=== PATIENT | female | born 1975 | race Caucasian/White ===

== ENCOUNTER 2022-07-01 13:48 | Emergency (ER) | payer BC | END 2022-07-01 14:16 | disposition home or self-care (01) | LOC: MW.ED 13:48 | DX: T22.212A Burn of second degree of left forearm, initial encounter (principal); T22.211A Burn of second degree of right forearm, initial encounter; T23.222A Burn of second degree of single left finger (nail) except thumb, initial encounter; T23.221A Burn of second degree of single right finger (nail) except thumb, initial encounter; X08.8XXA Exposure to other specified smoke, fire and flames, initial encounter; Y92.219 Unspecified school as the place of occurrence of the external cause | CPT/HCPCS: 99283; 99284 ==

== ENCOUNTER → 2024-02-01 | Day surgery (SDC) | payer BC ==
[~2024-02-01] MED LIST: Acetaminophen 1,000 MG in Premix Bag 1 BAG IV SCH; Albuterol 0.083% 2.5 MG/3 ML Neb Soln NEB PRN; Bupivacaine 0.5% 10 ML SDV ONE; HYDROmorphone 1 MG/ML Syringe IVPUSH PRN; Lidocaine 1% with EPINEPHrine 1:100,000 10 ML MDV ONE; Lidocaine 2% 11 ML Jelly Filled Syringe ONE; Lidocaine 2% 5 ML SDV ONE; Metoclopramide 10 MG/2 ML SDV IVPUSH PRN; Midazolam 1 MG/ML 2 ML SDV ONE; Morphine 2 MG/ML SYRINGE IVPUSH PRN; Naloxone 0.4 MG/ML SDV IVPUSH PRN; Ondansetron 4 MG/2 ML SDV IVPUSH PRN; Phenylephrine HCl In 0.9% NaCl 1 MG/10 ML Syringe IVPUSH PRN; ceFAZolin 2 GM in Sodium Chloride 0.9% 50 ML IV ONE; ePHEDrine 50 MG/ML SDV ONE; fentaNYL 100 MCG/2 ML SDV ONE; fentaNYL 50 MCG/ML SDV IVPUSH PRN; propofoL 500 MG/50 ML 50 ML ONE
[2024-02-01] MEDS: Pregabalin 75 MG Cap PO SCH (09:40)
[2024-02-01] MEDS: Lactated Ringers 1,000 ML IV SCH (09:40)
[2024-02-01] MEDS: Pregabalin 75 MG Cap ONE (10:26)
== END ==
LOC: MW.SDS 08:41
PROVIDERS: ATTEND Surgery
DX: Z12.11 Encounter for screening for malignant neoplasm of colon (principal); K62.0 Anal polyp; K64.4 Residual hemorrhoidal skin tags; K57.30 Diverticulosis of large intestine without perforation or abscess without bleeding; K64.8 Other hemorrhoids
CPT/HCPCS: 45378; 46922; 81025; A9270; J0665; J2250; J2704; J3010; J7120; 00812; J3490